=== PATIENT | female | born 1975 | race Caucasian/White ===

== ENCOUNTER 2018-10-14 23:58 | Emergency (ER) | payer SELFPAY ==
[~2018-10-14] VITALS: Ht 165.1 cm; Wt 82.8 kg
[2018-10-15 00:19] VITALS: BP 163/75; PULSE 86; RESP 18; Ht 165.1 cm; Wt 82.8 kg
[2018-10-15] MEDS ORDERED: CEPH-443 PO (14:07)
== END 2018-10-15 00:21 | disposition left against medical advice (07) ==
LOC: FTE 23:58
DX: Z53.21 Procedure and treatment not carried out due to patient leaving prior to being seen by health care provider (principal)

== ENCOUNTER 2018-10-15 11:59 | Emergency (ER) | payer MEDICAID ==
[~2018-10-15] VITALS: Ht 152.4 cm; Wt 88.2 kg
[2018-10-15 12:01] VITALS: Ht 152.4 cm; Wt 88.2 kg
[2018-10-15] MEDS ORDERED: LIDOCAINE 1% (MDV) 20 ML INJ SC ONE (12:30)
--- NOTE | 2018-10-15 12:30 | ERD ---
ER Documentation Chief Complaint Chief Complaint POSSSIBLE ABSCESS TO RIGHT UNDER ARM HPI This is a 43-year-old female presents for evaluation of right under arm pain. Symptoms have been ongoing for the last 3 days, she denies fever, she denies skin changes denies redness. 15 years ago, she developed a DVT, but this was in the setting of an IV placement, she has no history of coagulopathy and since then she has had no recurrence of her DVT and no other clotting issues, and she has not required lifelong blood thinners. She denies fever, denies nausea vomiting ROS All systems reviewed and are negative except as per history of present illness. Allergies Allergies: Coded Allergies: iodine (Verified Allergy, Unknown, 10/15/18) latex (Verified Allergy, Unknown, 10/15/18) sulfamethoxazole (Verified Allergy, Unknown, 10/15/18) trimethoprim (Verified Allergy, Unknown, 10/15/18) PMhx/Soc History of Surgery: Yes (CHOLECYSTECTOMY) Anesthesia Reaction: No Hx Neurological Disorder: No Hx Respiratory Disorders: Yes (ASTHMA) Hx Cardiac Disorders: No Hx Psychiatric Problems: No Hx Miscellaneous Medical Probl: No Hx Alcohol Use: No Hx Substance Use: No Hx Tobacco Use: No Smoking Status: Never smoker Physical Exam Vitals Vital Signs Date Temp Pulse Resp B/P (MAP) Pulse Ox O2 O2 Flow FiO2 Time Delivery Rate 10/15/18 99.5 78 18 142/82 99 12:01 (102) Physical Exam Const: No acute distress Head: Atraumatic Eyes: Normal Conjunctiva ENT: Normal External Ears, Nose and Mouth. Neck: Full range of motion. No meningismus. Resp: Clear to auscultation bilaterally Cardio: Regular rate and rhythm, no murmurs Abd: Soft, non tender, non distended. Normal bowel sounds Skin: No petechiae or rashes Back: No midline or flank tenderness Ext: No cyanosis, or edema. There is tender lymphadenopathy over the right upper extremity, skin is intact with no surrounding erythema, no crepitus, no fluctuance, Neur: Awake and alert Psych: Normal Mood and Affect Results 24 hrs Current Medications Medications Dose Sig/Dexter Start Time Status Last (Trade) Ordered Route PRN Stop Time Admin Dose Reason Admin Lidocaine 20 ml ONCE ONCE 10/15/18 DC (Xylocaine SC 12:30 1% (Mdv) 20 10/15/18 12:31 ml) Procedures/MDM 43-year-old female presents for right underarm pain. I suspect most likely lymphadenopathy, she is otherwise nontoxic appearing, given the acute nature of her symptoms, as well as pain less likely to be malignancy, an ultrasound was performed given her prior history of DVT to affected arm, preliminarily this appears negative, the patient wished to be discharged, as she had to go take care of her children, I advised her that I would call her back with the final results, if they are positive. Recommended supportive care, at this point I do not suspect abscess or cellulitis, but will give prescription for Keflex prophylactically. At discharge she was in no acute distress. GITA REYES MD Oct 15, 2018 12:30
[2018-10-15] MEDS ORDERED: CEPH-443 PO (14:07)
[2018-10-15 14:13] VITALS: BP 126/74; PULSE 76; RESP 19
== END 2018-10-15 14:13 | disposition home or self-care (01) ==
LOC: FTE 11:59
DX: M79.601 Pain in right arm (principal); J45.909 Unspecified asthma, uncomplicated; Z91.040 Latex allergy status
CPT/HCPCS: 93971; Z7502